=== PATIENT | male | born 1980 | race Caucasian/White ===

== ENCOUNTER 2020-10-25 20:04 | Emergency (ER) | payer SELFPAY ==
[2020-10-25 20:23] VITALS: BP 117/61; PULSE 87; RESP 16; O2SAT 99
[2020-10-25 22:20] VITALS: BP 116/64; PULSE 76; RESP 18; TEMP 37.1; O2SAT 99
[2020-10-25 23:28] LABS: Add Urine Microscopic? YES; Appearance Urine Turbid (Clear); Bilirubin Urine Negative (Negative); Blood Urine 1+ (Negative); Color Urine Yellow (Yellow); Glucose Urine UA Negative (Negative); Ketones Urine Negative (Negative); Leukocyte Esterase Ur 3+ LEU/UL (Negative); Nitrate Urine Negative (Negative); Protein Urine 2+ mg/dL (Negative); WBC Clumps Urine Present /HPF; WBC Urine >75 /hpf
--- NOTE | 2020-10-25 23:30 | ED.GENADULT ---
HPI - General Adult General Chief complaint: Urogenital-Male Stated complaint: painful discharge from penis - STD check Time Seen by Provider: 10/25/20 22:42 History of Present Illness HPI narrative: Patient is a 40 y/o male complaining of dysuria and penile discharge for last 4 days. He notices white discharge from tip of penis. There is no known alleviating or exacerbating factor. He has no fever or chills. Related Data Allergies Allergy/AdvReac Type Severity Reaction Status Date / Time No Known Allergies Allergy Verified 10/25/20 22:22 Review of Systems Constitutional: Constitutional: Denies chills, Denies fever(s), Denies headache(s) and Denies weakness Eyes: Eyes: Denies blurry vision ENT: Denies headache(s) and Denies neck pain Cardiovascular: Cardiovascular: Denies chest pain and Denies dyspnea Respiratory: Respiratory: Denies cough and Denies dyspnea Gastrointestinal: Gastrointestinal: Denies abdominal pain, Denies diarrhea, Denies nausea and Denies vomiting Genitourinary: Genitourinary: Denies hematuria, Reports dysuria and Reports penile discharge Musculoskeletal: Musculoskeletal: Denies back pain and Denies neck pain Neurologic: Denies headache(s) and Denies weakness Exam Const: General: no acute distress and well developed Orientation/consciousness: oriented to person, oriented to place, oriented to time and patient oriented x3 HENMT: Head: normocephalic Ears: external ears normal General nose exam: Normal external nose present Eyes: General: appearance normal, both eyes and all related structures Conjunctivae: conjunctivae normal Neck: Neck: normal visual inspection and full ROM Chest: Chest palpation & inspection: normal inspection of the chest and no tenderness Resp: Effort & Inspection: normal respiratory effort Auscultation: clear to auscultation bilaterally Cardio: Rate: regular rate Rhythm: regular rhythm GI: GI Palp: No abdominal tenderness and Yes Soft to palpation : Meatus: meatal discharge Skin: General skin exam: normal color and turgor normal Neuro: General: oriented to person, oriented to place, oriented to time and patient oriented x3 Cognition (Neuro): normal cognition Extrem: General: normal to inspection, full ROM and no pedal edema Psych: Appearance: grossly normal Mental Status: mental status grossly normal Affect: normal affect Course Vital Signs Vital signs: Vital Signs Pulse Rate 87 10/25/20 20:23 Respiratory Rate 16 09/14/21 20:23 Blood Pressure 117/61 10/25/20 20:23 Pulse Oximetry 99 10/25/20 20:23 Temperature 37.1 C 10/25/20 22:20 Pulse Rate 87 10/26/20 01:43 Respiratory Rate 18 10/26/20 01:43 Blood Pressure 140/90 10/26/20 01:43 Pulse Oximetry 97 10/26/20 01:43 Medical Decision Making Vital Signs Vital Signs: Vital Signs Pulse Rate 87 10/25/20 20:23 Respiratory Rate 16 10/25/20 20:23 Blood Pressure 117/61 10/25/20 20:23 Pulse Oximetry 99 10/25/20 20:23 Temperature 37.1 C 10/25/20 22:20 Pulse Rate 87 10/26/20 01:43 Respiratory Rate 18 10/26/20 01:43 Blood Pressure 140/90 10/26/20 01:43 Pulse Oximetry 97 10/26/20 01:43 Lab Data Labs: Lab Results 10/25/20 10/25/20 Range/Units 23:04 23:04 Urine Color Yellow (Yellow) Urine Appearance Turbid H (Clear) Urine pH 7.0 (5.0-9.0) Ur Specific [place] 1.020 (1.001-1.035) Urine Protein 2+ H (Negative) mg/dL Urine Glucose (UA) Negative (Negative) mg/dL Urine Ketones Negative (Negative) mg/dL Ur Blood (Man) 1+ H (Negative) Urine Nitrate Negative (Negative) Urine Bilirubin Negative (Negative) Urine Urobilinogen 2.0 H (<2.0) mg/dL Leukocyte Esterase Rfl 3+ H (Negative) CASSANDRA/UL Urine RBC 11-20 H (0-2) /hpf Urine WBC >75 H /hpf Urine WBC Clumps Present H (None) /HPF C.trachomatis RNA (TMA) Pending N.gonorrhoeae RNA (TMA) Pending Discharge Plan D
[2020-10-25] MEDS: LIDOCAINE HCL 1% LOCAL INJ 20 ML VIAL (23:56)
[2020-10-25] MEDS: cefTRIAXone 1 GM VIAL 0.5 GM IM (23:56)
[2020-10-26] MEDS: metroNIDAZOLE 250 MG TABLET 2000 MG PO (01:39)
[2020-10-26 01:43] VITALS: BP 140/90; PULSE 87; RESP 18; O2SAT 97
== END 2020-10-26 01:44 | disposition home or self-care (01) ==
PROVIDERS: Emergency Provider Emergency Medicine
DX: N34.2 Other urethritis (principal)
CPT/HCPCS: 81001; 87086; 87491; 87591; 96372; 99283; A9270; J0696